=== PATIENT | female | born 1975 | race Caucasian/White ===

== ENCOUNTER 2016-10-14 01:47 | Emergency (ER) | payer SELFPAY ==
[~2016-10-14] VITALS: Ht 165.1 cm; Wt 99.8 kg
[2016-10-14 01:55] VITALS: BP 146/78
[2016-10-14] MEDS ORDERED: KETOROLAC TROMETHAMINE 60 MG/2 ML SYRINGE. IM ONE (02:30)
--- NOTE | 2016-10-14 02:31 | PHYS DOC ---
Past Medical History Past Medical History: Cancer Additional Past Medical Histor: CERVICAL CA Past Surgical History: Additional Past Surgical Histo: D&C Alcohol Use: None Drug Use: None Adult General Chief Complaint Chief Complaint: ABSCESS HPI HPI 41-year-old female who states she's had worsening left lower breast pain since history of multiple abscesses in the past. She states she additionally has had a cough with some productive sputum for the last several days as well. She denies any shortness of breath. She denies any history of heart problems. She denies any fever or chills. She does state she has history of hidradenitis suppurativa and is prone to multiple abscesses. She denies any drainage under her breast area. She states her pain is worse with movements. Review of Systems Review of Systems Constitutional: Denies fever or chills [] Eyes: Denies change in visual acuity, redness, or eye pain [] HENT: Denies nasal congestion or sore throat [] Respiratory: Denies cough or shortness of breath [] Cardiovascular: No additional information not addressed in HPI [] GI: Denies abdominal pain, nausea, vomiting, bloody stools or diarrhea [] : Denies dysuria or hematuria [] Musculoskeletal: Denies back pain or joint pain [] Integument: Denies rash or skin lesions [] Neurologic: Denies headache, focal weakness or sensory changes [] Endocrine: Denies polyuria or polydipsia [] Current Medications Current Medications Current Medications Medications (Trade) Dose Ordered Sig/[facility] Start Time Stop Time Status Last Admin Dose Admin Ketorolac Tromethamine (Toradol Im) 60 mg 1X ONCE 10/14/16 02:30 10/14/16 02:31 DC 10/14/16 02:25 60 MG Allergies Allergies Allergies Coded Allergies Type Severity Reaction Last Updated Verified cephalexin Allergy Intermediate 04/20/16 No Physical Exam Physical Exam Constitutional: Well developed, well nourished, no acute distress, non-toxic appearance. [] HENT: Normocephalic, atraumatic, bilateral external ears normal, oropharynx moist, no oral exudates, nose normal. [] Eyes: PERRLA, EOMI, conjunctiva normal, no discharge. [] Neck: Normal range of motion, no tenderness, supple, no stridor. [] Cardiovascular:Heart rate regular rhythm, no murmur [] Lungs & Thorax: Bilateral breath sounds clear to auscultation [] Abdomen: Bowel sounds normal, soft, no tenderness, no masses, no pulsatile masses. [] Skin: Warm, dry, there is an area of firmness under the left breast in the crease, there is no palpable fluctuance or superficial swelling, there is no erythema. [] Back: No tenderness, no CVA tenderness. [] Extremities: No tenderness, no cyanosis, no clubbing, ROM intact, no edema. [] Neurologic: Alert and oriented X 3, normal motor function, normal sensory function, no focal deficits noted. [] Psychologic: Affect normal, judgement normal, mood normal. [] Current Patient Data Vital Signs Vital Signs Date Time Temp Pulse Resp B/P Pulse Ox O2 Delivery O2 Flow Rate FiO2 10/14/16 01:55 99.5 82 20 95 Room Air 99.5 Lab Values Laboratory Tests Test 10/14/16 02:10 Influenza Type A Antigen Negative (NEGATIVE) Influenza Type B Antigen Negative (NEGATIVE) EKG EKG [] Radiology/Procedures Radiology/Procedures One view of the chest as interpreted by me does not reveal an acute cardiopulmonary process. Course & Med Decision Making Course & Med Decision Making Pertinent Labs and Imaging studies reviewed. (See chart for details) This otherwise healthy 41-year-old female with probable abscess formation under her left breast will be discharged with a course of antibiotics. The abscess at this time does not appear fluctuant and would not be a good candidate for incision at this time. I counseled her to remain on and off for the next several days receive close follow-up. She is very agreeable as planned will be discharged without incident. No indication at this time to perform any laboratory workup. Dragon Disclaimer Dragon Disclaimer This electronic medical record was generated, in whole or in part, using a voice recognition dictation system. Departure Departure Impression: Primary Impression: Abscess Disposition: 01 HOME, SELF-CARE Admitting Physician: Other Condition: STABLE Referrals: NO PCP (PCP) Patient Instructions: Abscess, [id number] Additional Instructions: Please take your antibiotic as prescribed. Take your antibiotic as prescribed. Return to the ER if you develop any worsening of your symptoms. Follow up with your primary doctor in the next 2-3 days. Scripts Ibuprofen 800 Mg [id number] Mg PO PRN Q6HRS PRN INFLAMMATION #20 TAB Prov:DEAN PIERCE DO 10/14/16 Sulfamethoxazole/Trimethoprim (Bactrim Ds Tablet)1 Each Tablet1 Tab PO BID #20 TAB Prov:DEAN PIERCE DO 10/14/16 DEAN PIERCE DO Oct 14, 2016 02:31
[2016-10-14 02:35] LABS: OBC FLU VALID
[2016-10-14] MEDS ORDERED: SULF1TAB24 PO (02:40)
[2016-10-14] MEDS ORDERED: IBUP-1060 PO (02:41)
--- NOTE | 2016-10-14 07:14 | RAD ---
Portable chest, 10/14/2016: History: Chest pain Comparison is made to a study from 03/04/2015. The heart size and pulmonary vascularity are normal. No pulmonary infiltrates are seen. There is no evidence of pleural fluid. IMPRESSION: No acute cardiopulmonary abnormality is detected.
== END 2016-10-14 02:50 | disposition home or self-care (01) ==
LOC: ER 01:47
DX: N61.1 Abscess of the breast and nipple (principal); R05 Cough; L73.2 Hidradenitis suppurativa; R07.9 Chest pain, unspecified; Z88.1 Allergy status to other antibiotic agents
CPT/HCPCS: 71010; 87804; 96372; 99285; J1885

== ENCOUNTER 2017-04-27 21:52 | Emergency (ER) | payer SELFPAY ==
[~2017-04-27] VITALS: Ht 167.6 cm; Wt 92.1 kg
[~2017-04-27 21:52] MED LIST: IBUP-1060 PO; SULF1TAB24 PO
[2017-04-27 22:03] VITALS: BP 127/72
[2017-04-27] MEDS ORDERED: AZITHROMYCIN 250 MG TABLET. PO ONE (22:15)
[2017-04-27] MEDS ORDERED: BENZONATATE 100 MG CAPSULE. PO ONE (22:15)
[2017-04-27] MEDS ORDERED: predniSONE 20 MG TABLET PO ONE (22:15)
[2017-04-27] MEDS ORDERED: IPRATRPIUM/ALBUTEROL 0.5/2.5MG 3 ML NEBU. NEB ONE (22:15)
--- NOTE | 2017-04-27 22:16 | PHYS DOC ---
Past Medical History Past Medical History: Cancer, Other Additional Past Medical Histor: PRE-CERVICAL CA, GESTATIONAL DM Past Surgical History: , Other Additional Past Surgical Histo: D&C Alcohol Use: None Drug Use: None Adult General Chief Complaint Chief Complaint: Congestion HPI HPI Patient is a 41 year old female with history of smoking who presents today with a productive cough and nasal congestion for one week. Patient is also complaining of a rash on her abdomen and back that began 2 days ago. Patient denies any known source for the rash. Patient denies any fever. Review of Systems Review of Systems Constitutional:see HPI Eyes: Denies change in visual acuity, redness, or eye pain [] HENT: nasal congestion Respiratory: cough Cardiovascular: No additional information not addressed in HPI [] GI: Denies abdominal pain, nausea, vomiting, bloody stools or diarrhea [] : Denies dysuria or hematuria [] Musculoskeletal: Denies back pain or joint pain [] Integument: rash Neurologic: Denies headache, focal weakness or sensory changes [] Endocrine: Denies polyuria or polydipsia [] Current Medications Current Medications Current Medications Medications (Trade) Dose Ordered Sig/Lissette Start Time Stop Time Status Last Admin Dose Admin Albuterol/ Ipratropium (Duoneb) 3 ml 1X ONCE 04/27/17 22:15 04/27/17 22:16 DC 04/27/17 22:15 3 ML Azithromycin (Zithromax) 500 mg 1X ONCE 04/27/17 22:15 04/27/17 22:16 DC 04/27/17 22:22 500 MG Benzonatate (Tessalon Perle) 100 mg 1X ONCE 04/27/17 22:15 04/27/17 22:16 DC 04/27/17 22:22 100 MG Prednisone (Prednisone) 60 mg 1X ONCE 04/27/17 22:15 04/27/17 22:16 DC 04/27/17 22:22 60 MG Allergies Allergies Allergies Coded Allergies Type Severity Reaction Last Updated Verified cephalexin Allergy Intermediate 04/20/16 No Physical Exam Physical Exam Constitutional: Well developed, well nourished, no acute distress, non-toxic appearance. [] HENT: Normocephalic, atraumatic, bilateral external ears normal, oropharynx moist, no oral exudates, nose normal. [] Eyes: PERRLA, EOMI, conjunctiva normal, no discharge. [] Neck: Normal range of motion, no tenderness, supple, no stridor. [] Cardiovascular:Heart rate regular rhythm, no murmur [] Lungs & Thorax: Diffuse wheezing to posterior lower lung bases. Abdomen: Bowel sounds normal, soft, no tenderness, no masses, no pulsatile masses. [] Skin: Scattered areas of erythematous macular rash on patient's upper tarso Back: No tenderness, no CVA tenderness. [] Extremities: No tenderness, no cyanosis, no clubbing, ROM intact, no edema. [] Neurologic: Alert and oriented X 3, normal motor function, normal sensory function, no focal deficits noted. [] Psychologic: Affect normal, judgement normal, mood normal. [] Current Patient Data Vital Signs Vital Signs Date Time Temp Pulse Resp B/P (MAP) Pulse Ox O2 Delivery O2 Flow Rate FiO2 04/27/17 22:18 93 Room Air 04/27/17 22:03 98.2 105 20 98.2 EKG EKG [] Radiology/Procedures Radiology/Procedures [] Course & Med Decision Making Course & Med Decision Making Pertinent Labs and Imaging studies reviewed. (See chart for details) This is a 41-year-old female patient with history of smoking presenting today with bronchitis symptoms. Encouraged to consider smoking cessation. Patient states she has no medical insurance and no PCP. She was wheezing on arrival to the ED. We did give her breathing treatment prednisone Tessalon Perles and started on azithromycin lungs have cleared up. She'll be discharged with prednisone Tessalon Perles azithromycin and albuterol inhaler. Follow-up with a primary care doctor in one week. Draghever Disclaimer Dragon Disclaimer This electronic medical record was generated, in whole or in part, using a voice recognition dictation system. Departure Departure Impression: Primary Impression: Upper respiratory infection Additional Impressions: Bronchitis Smoking addiction Disposition: 01 HOME, SELF-CARE Condition: STABLE Referrals: NO PCP (PCP) follow up with a primary care doctor in one week Patient Instructions: Acute Bronchitis, Smoking Cessation, Upper Respiratory Infection, Adult Additional Instructions: You were seen with symptoms consistent of bronchitis. Consider smoking cessation. Take the prescribed medicines as ordered. Follow-up with the primary care doctor in the next 7 days. Scripts Prednisone (PREDNISONE) 50 Mg Tablet 1 TAB PO DAILY, #4 TAB Prov: BRISA BLAS APRN 04/27/17 Azithromycin (ZITHROMAX) 250 Mg Tablet 250 MG PO DAILY for ANTI-BIOTIC, #4 TAB 0 Refills Prov: BRISA BLAS APRN 04/27/17 Benzonatate (TESSALON PERLE) 100 Mg Capsule 1 CAP PO TID, #30 CAP Prov: BRISA BLAS APRN 04/27/17 Albuterol Sulfate (PROAIR HFA INHALER) 8.5 Gm Hfa.aer.ad 1 PUFF INH PRN Q6HRS Y for SHORTNESS OF BREATH, #1 INHALER 0 Refills Prov: BRISA BLAS APRN 04/27/17 Problem Qualifiers Primary Impression: Upper respiratory infection URI type: unspecified URI Qualified Codes: J06.9 - Acute upper respiratory infection, unspecified HAFSANESSBRISA Bertrand APRN Apr 27, 2017 22:16
[2017-04-27] MEDS ORDERED: AZIT250T PO (22:31)
[2017-04-27] MEDS ORDERED: PROAIR HFA8.5 GM INH (22:31)
[2017-04-27] MEDS ORDERED: BENZ100C PO (22:31)
[2017-04-27] MEDS ORDERED: PRED50TA PO (22:31)
== END 2017-04-27 22:35 | disposition home or self-care (01) ==
LOC: ER 21:52
DX: J06.9 Acute upper respiratory infection, unspecified (principal); J40 Bronchitis, not specified as acute or chronic; F17.200 Nicotine dependence, unspecified, uncomplicated; R21 Rash and other nonspecific skin eruption; Z88.1 Allergy status to other antibiotic agents
CPT/HCPCS: 94250; 94640; 99284; J7512; J7620; Q0144

== ENCOUNTER 2017-11-06 23:27 | Emergency (ER) | payer OTHER ==
[2017-11-06] MEDS: predniSONE 10 MG TABLET PO (23:57)
[2017-11-06] MEDS: BENZONATATE 100 MG CAPSULE. PO (23:57)
[2017-11-07] MEDS: IPRATRPIUM/ALBUTEROL 0.5/2.5MG 3 ML NEBU. NEB (00:02)
== END 2017-11-07 00:13 | disposition home or self-care (01) ==
LOC: ER 11-07 00:13
DX: J40 Bronchitis, not specified as acute or chronic (principal); Z88.1 Allergy status to other antibiotic agents
CPT/HCPCS: 94640; 99283-25; J7512; J7620

== ENCOUNTER 2018-01-11 19:49 | Emergency (ER) | payer OTHER ==
[2018-01-11] MEDS: DIPHTH,PERTUSS(ACELL),TET TOX 0.5 ML DISP.SYRIN. VAX IM (20:15)
[2018-01-11] MEDS: LIDOCAINE WITH 8.4% SOD BICARB 3 ML DISP.SYRIN. INJ (20:17)
[2018-01-11] MEDS: BUPIVACAINE 0.5% 50 ML VIAL. INFIL (20:17)
[2018-01-11] MEDS ORDERED: NEOMY/BACITR/POLYMYXIN OINT PACKET. TP ×2 (20:37→20:40)
== END 2018-01-11 20:46 | disposition home or self-care (01) ==
LOC: ER 19:49
DX: S61.216A Laceration without foreign body of right little finger without damage to nail, initial encounter (principal); Z79.899 Other long term (current) drug therapy; Z79.2 Long term (current) use of antibiotics; Z88.1 Allergy status to other antibiotic agents; W26.8XXA Contact with other sharp object(s), not elsewhere classified, initial encounter; Y93.89 Activity, other specified; Y92.89 Other specified places as the place of occurrence of the external cause; Y99.8 Other external cause status
CPT/HCPCS: 12001; 90471; 90715; 99283; J3490

== ENCOUNTER 2018-03-22 20:25 | Emergency (ER) | payer OTHER ==
[2018-03-22 21:45] LABS: BILIRUBIN,URINE NEGATIVE (NEG); CLARITY,URINE CLEAR; COLOR,URINE YELLOW; GLUCOSE,URINE NEGATIVE (NEG); NITRITE,URINE NEGATIVE (NEG); PH,URINE 6.5; PROTEIN,URINE NEGATIVE (NEG-TRACE); UROBILINOGEN,URINE 0.2 mg/dL (0.2 mg/dL)
[2018-03-22 21:48] LABS: BACTERIA,URINE FEW /HPF (0-FEW); RBC,URINE 0 /HPF (0-2); SQUAMOUS EPITHELIAL CELL,UR FEW /LPF
[2018-03-22 22:33] LABS: ADD MAN DIFF? NO
[2018-03-22 22:36] LABS: BASO # 0.2 x10^3/uL (0.0-0.2); BASO % 1 % (0-3); EOS # 0.1 x10^3/uL (0.0-0.7); EOS % 1 % (0-3); HEMATOCRIT 41.4 % (36.0-47.0); HEMOGLOBIN 14.5 g/dL (12.0-15.5); LYMPH # 4.1 x10^3/uL (1.0-4.8); LYMPH % 25 % (24-48); MEAN CORPUSCULAR HEMOGLOBIN 34 pg (25-35); MEAN CORPUSCULAR HGB CONC 35 g/dL (31-37); MEAN CORPUSCULAR VOLUME 98 fL (79-100); MONO # 0.8 x10^3/uL (0.0-1.1); MONO % 5 % (0-9); NEUT # 11.4 x10^3uL (1.8-7.7); NEUT % 69 % (31-73); PLATELET COUNT 404 x10^3/uL (140-400); RED BLOOD COUNT 4.23 x10^6/uL (3.50-5.40); WHITE BLOOD COUNT 16.7 x10^3/uL (4.0-11.0)
[2018-03-22] MEDS: KETOROLAC 15 MG/ML VIAL. IV (22:43)
[2018-03-22] MEDS: ONDANSETRON PF 4 MG/2 ML VIAL. IV (22:43)
[2018-03-22] MEDS: IV NORMAL SALINE 1000ML BAG 1,000 ML IV (22:43)
[2018-03-22] MEDS: CIPROFLOXACIN 400MG PREMIX 200 ML IV (22:43)
[2018-03-22 22:47] LABS: AMPHETAMINE/METHAMPHETAMINE NEG (NEG); BARBITURATES NEG (NEG); BENZODIAZEPINES NEG (NEG); CANNABINOIDS NEG (NEG); COCAINE NEG (NEG); ETHANOL, URINE NEG (NEG); METHADONE NEG (NEG); OPIATES NEG (NEG); PHENCYCLIDINE NEG (NEG)
[2018-03-22 23:24] LABS: ANION GAP 7 (6-14); BLOOD UREA NITROGEN 5 mg/dL (7-20); BUN/CREATININE RATIO 7 (6-20); CALCIUM 8.4 mg/dL (8.5-10.1); CARBON DIOXIDE 27 mmol/L (21-32); CHLORIDE 105 mmol/L (98-107); CREATININE 0.7 mg/dL (0.6-1.0); GFR 92.7; GLUCOSE 118 mg/dL (70-99); POTASSIUM 3.8 mmol/L (3.5-5.1); SODIUM 139 mmol/L (136-145)
[2018-03-22 23:29] LABS: ETHANOL < 10 mg/dL (0-10)
[2018-03-22 23:32] LABS: ALBUMIN 3.1 g/dL (3.4-5.0); ALBUMIN/GLOBULIN RATIO 0.7 (1.0-1.7); ALK PHOS 81 U/L (46-116); ALT (SGPT) 14 U/L (14-59); AST (SGOT) 10 U/L (15-37); LIPASE 71 U/L (73-393); TOTAL BILIRUBIN 0.2 mg/dL (0.2-1.0); TOTAL PROTEIN 7.3 g/dL (6.4-8.2)
== END 2018-03-23 00:45 | disposition home or self-care (01) ==
LOC: ER 03-23 00:45
DX: N12 Tubulo-interstitial nephritis, not specified as acute or chronic (principal); Z98.51 Tubal ligation status; Z98.890 Other specified postprocedural states; Z88.1 Allergy status to other antibiotic agents
CPT/HCPCS: 36415; 80053; 80307; 81001; 83690; 85025; 87086; 96365; 96375; 99284-25; G0480; J0744; J1885; J2405; J7030